=== PATIENT | female | born 1940 | race Caucasian/White ===

== ENCOUNTER 2022-08-07 16:11 | Observation (INO) | payer MEDICARE, SELFPAY ==
--- NOTE | 2022-08-07 16:29 | PC.NURSE ---
PT ARRIVED TO FLOOR BY STRETCHER AT 1625.
[2022-08-07 16:30] VITALS: BP 125/77; PULSE 96; RESP 18; TEMP 36.8; O2SAT 96
[2022-08-07 17:48] VITALS: BMI 31.1
[2022-08-07 17:52] LABS: Coronavirus 19, PCR Not Detected (NotDetected); Influenza A, PCR Not Detected (NotDetected); Influenza B, PCR Not Detected (NotDetected)
--- NOTE | 2022-08-07 18:50 | EXP.HP ---
History of Present Illness *Admission Date: 08/07/22 *Reason for visit:: NSTEMI *History of present illness: 81-year-old female history hypertension hyperlipidemia diabetes cystectomy. States that around 3:30 in the morning she began having some chills and nonspecific symptoms, at this time she noted that her heart was racing per her watch. Was told roughly 125. Denies having any chest pain shortness of breath nausea vomiting diarrhea. Blood sugar was slightly elevated during this time. Went to the emergency department where heart rate was normal sinus rhythm. High-sensitivity troponin was mildly elevated at [facility]. Mildly anemic 11.9 hemoglobin, creatinine 1.2, sodium 133, lactate 2.2. BNP slightly elevated to 289. Asymptomatic urinary tract infection on UA. She was transferred to [facility] for evaluation of NSTEMI. Currently at this time she is completely asymptomatic and denies any chest pain shortness of breath. She has not had any palpitations or further racing heart rate. No concerns or complaints at this time. [facility] Disclaimer: The information contained in this section may have been updated after the patient was seen, as this information can be updated by other users. Medical History (Updated 08/07/22 @ 18:59 by Esthela Lancaster MD) Breast cancer Carpal tunnel syndrome on both sides Diabetes mellitus, type 2 Hyperlipidemia Hypertension Surgical History (Updated 08/07/22 @ 16:41 by Padmini Coffey RN) History of appendectomy History of cholecystectomy History of hysterectomy History of knee replacement Social History (Updated 08/07/22 @ 16:41 by Padmini Coffey RN) Smoking Status: Never smoker alcohol intake: never current occupational status: retired Travel in the last 8 weeks: None Review of Systems Constitutional Constitutional: Reports as per [facility] Meds Home Medications and Allergies Home Medications Medication Instructions Recorded Confirmed Type aspirin 81 mg capsule 81 mg PO HS Heart disease 08/07/22 08/07/22 History hydroxyurea 500 mg capsule 500 mg PO DAILY gout 08/07/22 08/07/22 History lisinopril 10 mg tablet 10 mg PO DAILY High blood pressure 08/07/22 08/07/22 History metformin 1,000 mg tablet 1,000 mg PO BID Diabetes 08/07/22 08/07/22 History metoprolol succinate 25 mg 25 mg PO DAILY High blood pressure 08/07/22 08/07/22 History tablet,extended release 24 hr pravastatin 20 mg tablet 20 mg PO HS Cholesterol 08/07/22 08/07/22 History New Prescriptions to Start Prescriptions: Allergies Allergy/AdvReac Type Severity Reaction Status Date / Time adhesive tape Allergy Severe Other Verified 08/07/22 16:51 Penicillins Allergy Severe Hives Verified 08/07/22 16:51 Exam Data for Last 24 hours Vital signs and Labs for Last 24 Hours: Temp Pulse Resp BP Pulse Ox 98.2 F 96 H 18 125/77 96 08/07/22 16:30 08/07/22 16:30 08/07/22 16:30 08/07/22 16:30 08/07/22 16:30 I & O for Last 24 hours: Intake & Output 08/04/22 08/05/22 08/06/22 08/07/22 23:59 23:59 23:59 23:59 Intake Total 240 / 240 Balance 240 / 240 Weight 67.642 kg Constitutional Constitutional: no acute distress *Routine HEENT Exam Head: Present normocephalic Eye: Present EOMI and PERRL ENT: Present mucous membranes moist *Routine Neck Exam Neck: Present supple; Absent lymphadenopathy *Routine Respiratory Exam Respiratory: Present CTA bilaterally *Routine Cardiovascular Exam Cardiovascular: Present RRR *Routine Abdominal Exam Abdominal: Present soft and normoactive bowel sounds; Absent tenderness *Routine Rectal Exam Rectal:: deferred *Routine Genitalia Exam Genitalia:: deferred *Routine Extremities Exam Extremities: Absent cyanosis, clubbing or edema *Routine Skin Exam Skin: Present warm; Absent rash *Routine Neurological Exam Neurological: Present alert and oriented X3 Assessment and Plan *Assessment and plan (1) NSTEMI (non-ST elevated myoc
--- NOTE | 2022-08-07 18:59 | XR_ITS ---
PROCEDURE INFORMATION: Exam: XR Chest Exam date and time: 08/07/2022 7:03 PM Age: 81 years old Clinical indication: Pain; Chest pressure; Additional info: Nstemi TECHNIQUE: Imaging protocol: Radiologic exam of the chest. Views: 1 view. COMPARISON: No relevant prior studies available. FINDINGS: Lungs: Hyperlucent changes are demonstrated. Increase in the lung volumes is demonstrated. Pleural spaces: Unremarkable. No pleural effusion. No pneumothorax. Heart/Mediastinum: Unremarkable. No cardiomegaly. Bones/joints: Unremarkable. IMPRESSION: 1. No evidence of acute cardiopulmonary disease. 2. Evidence of previous granulomatous disease.
[2022-08-07 20:00] VITALS: BP 136/91; PULSE 90; PULSE 95; RESP 17; TEMP 36.8; O2SAT 96
[2022-08-07 20:01] LABS: Lactic Acid 1.6 mmol/L (0.7-2.1)
[2022-08-07 20:23] LABS: Troponin I 0.21 ng/ml (0.00-0.034)
[2022-08-07 20:40] VITALS: PULSE 82
[2022-08-07 22:05] LABS: POC Glucose,Bedside 356 (70-110)
[2022-08-07 22:22] LABS: Chloride 100 mmol/L (98-107); Sodium 131 mmol/L (136-145)
[2022-08-07 22:25] LABS: Blood Urea Nitrogen 18 mg/dl (7-17); Calcium 8.7 mg/dl (8.4-10.2); Carbon Dioxide 22 mmol/L (22.0-30.0); Creatinine Clearance Estimated 46 mL/min (50-200); Estimated Glomerular Filt Rate 60 ml/min (>60); GFR (African American) 73 ML/MIN (>60); Glucose 236 mg/dl (74-100)
[2022-08-07 22:34] LABS: Basophils # 0.2 K/mm3 (0-0.2); Basophils % 1.8 % (0.1-2.0); Eosinophils # 0.1 K/mm3 (0.0-0.4); Hematocrit 33.9 % (37.0-47.0); Hemoglobin 11.3 g/dL (12.2-16.2); Lymphocytes % 10.9 % (10-50); Mean Corpuscular HGB Conc 33.4 g/dL (31.8-35.4); Mean Corpuscular Hemoglobin 33.9 pg (27.0-31.2); Mean Corpuscular Volume 101.7 fl (81-99); Mean Platelet Volume 8.3 fl (7.4-10.4); Monocytes # 0.3 K/mm3 (0.1-1.0); Monocytes % 3.2 % (1.7-9.3); Neutrophils # 7.6 K/mm3 (1.8-7.8); Neutrophils % 83.2 % (37.0-80.0); Platelet Count 375 K/mm3 (142-424); Red Blood Count 3.33 M/mm3 (4.20-5.40); Red Cell Distribution Width 13.8 % (11.5-17.5); White Blood Count 9.1 K/mm3 (4.8-10.8)
[2022-08-08] VITALS (9 sets, daily range): BP systolic 120–177; BP diastolic 57–76; PULSE 80–114; RESP 16–21; TEMP 36.7–39.9; O2SAT 93–97; BMI 31.3
--- NOTE | 2022-08-08 05:54 | PC.NURSE ---
pt a&o x4. room air. normal sinus on tele. denies any chest pain through the night. echo today.
[2022-08-08 06:21] LABS: POC Glucose,Bedside 127 (70-110)
[2022-08-08 07:52] LABS: Basophils % 0.4 % (0.1-2.0); Eosinophils # 0.1 K/mm3 (0.0-0.4); Hematocrit 35.9 % (37.0-47.0); Hemoglobin 11.7 g/dL (12.2-16.2); Lymphocytes # 1.2 K/mm3 (0.7-4.5); Lymphocytes % 14.4 % (10-50); Mean Corpuscular HGB Conc 32.5 g/dL (31.8-35.4); Mean Corpuscular Hemoglobin 32.8 pg (27.0-31.2); Mean Corpuscular Volume 100.8 fl (81-99); Mean Platelet Volume 8.2 fl (7.4-10.4); Monocytes # 0.3 K/mm3 (0.1-1.0); Monocytes % 4.1 % (1.7-9.3); Neutrophils # 6.5 K/mm3 (1.8-7.8); Neutrophils % 80.1 % (37.0-80.0); Platelet Count 363 K/mm3 (142-424); Red Blood Count 3.56 M/mm3 (4.20-5.40); Red Cell Distribution Width 13.8 % (11.5-17.5); White Blood Count 8.1 K/mm3 (4.8-10.8)
[2022-08-08 08:02] LABS: Alanine Aminotransferase 15 U/L (12-78); Albumin Level 3.5 g/dl (3.5-5.0); Albumin/Globulin Ratio 1.4 (1.1-1.8); Alkaline Phosphatase 64 U/L (38-126); Anion Gap 9.1 mEq/L (5-15); Aspartate Amino Transferase 24 U/L (14-36); Bilirubin,Total 0.8 mg/dl (0.2-1.3); Blood Urea Nitrogen 17 mg/dl (7-17); Calcium 8.3 mg/dl (8.4-10.2); Carbon Dioxide 28 mmol/L (22.0-30.0); Chloride 97 mmol/L (98-107); Chol/HDL Ratio 2.3 (1-3.5); Cholesterol 119 mg/dl (140-200); Creatinine Clearance Estimated 46 mL/min (50-200); Estimated Glomerular Filt Rate 69 ml/min (>60); GFR (African American) 83 ML/MIN (>60); Globulin 2.5 g/dL (1.3-3.2); Glucose 202 mg/dl (74-100); HDL Cholesterol 51 mg/dl (40-60); Magnesium 1.2 mg/dl (1.6-2.3); Phosphorous 3.6 mg/dl (2.5-4.5); Potassium 4.1 mmoL/L (3.5-5.1); Sodium 130 mmol/L (136-145); Triglycerides 85 mg/dl (30-150); VLDL Cholesterol 17 mg/dL (0-40)
[2022-08-08 08:12] LABS: Direct LDL Cholesterol 44.74 mg/dL (100-129)
--- NOTE | 2022-08-08 09:18 | EXP.ACUTE.PN ---
Subjective *Date: 08/08/22 *Time: 09:18 Interval history: Hyperglycemic overnight. Feels better today. No chest pain, or any other concerning symptom Medical Exam Vital signs and Labs for Last 24 Hours: Vital Signs Temp Pulse Pulse Resp BP Pulse Ox 08/08/22 08:00 98.9 F 101 H 18 138/57 L 95 08/08/22 04:00 80 08/08/22 04:00 98.3 F 87 16 122/61 97 08/08/22 00:00 90 08/08/22 00:00 98.0 F 92 H 16 120/57 L 93 L 08/07/22 20:00 90 08/07/22 20:40 82 08/07/22 20:00 98.2 F 95 H 17 136/91 H 96 08/07/22 16:30 98.2 F 96 H 18 125/77 96 Intake and Output 08/07/22 08/08/22 08/08/22 23:59 07:59 15:59 Intake Total 240 / 390 150 / 390 240 / 390 Output Total 0 / 0 0 / 0 Balance 240 / 390 150 / 390 240 / 390 Intake: Intake, Oral Amount 240 / 390 150 / 390 240 / 390 Output: Output, Urine Amount 0 / 0 0 / 0 Other: Number of Voids 0 Number of Unmeasured Voids 1 1 Weight 67.642 kg 67.727 kg Patient Weight 08/08/22 23:59 Weight 67.727 kg Laboratory Results - last 24 hr 08/07/22 19:45: Troponin I 0.21 H 08/07/22 19:45: Lactate 1.6 08/07/22 19:45: Sodium 131 L, Potassium 4.0, Chloride 100, Carbon Dioxide 22, Anion Gap 13.0, BUN 18 H, Creatinine 0.90, Estimated Creat Clear 46, Estimated GFR 60, Est GFR ( Amer) 73, Glucose 236 H, Calcium 8.7 08/07/22 21:57: POC Glucose 356 H* 08/07/22 22:25: WBC 9.1, RBC 3.33 L, Hgb 11.3 L, Hct 33.9 L, MCV 101.7 H, MCH 33.9 H, MCHC 33.4, RDW 13.8, Plt Count 375, MPV 8.3, Neut % (Auto) 83.2 H, Lymph % (Auto) 10.9, [place] % (Auto) 3.2, Eos % (Auto) 1.0, Baso % (Auto) 1.8, Neut # (Auto) 7.6, Lymph # (Auto) 1.0, [place] # (Auto) 0.3, Eos # (Auto) 0.1, Baso # (Auto) 0.2 08/07/22 23:35: SARS-CoV-2 (PCR) Not detected, Influenza A Untype (PCR) Not detected, Influenza Type B (PCR) Not detected 08/08/22 06:12: POC Glucose 127 H 08/08/22 07:44: WBC 8.1, RBC 3.56 L, Hgb 11.7 L, Hct 35.9 L, MCV 100.8 H, MCH 32.8 H, MCHC 32.5, RDW 13.8, Plt Count 363, MPV 8.2, Neut % (Auto) 80.1 H, Lymph % (Auto) 14.4, [place] % (Auto) 4.1, Eos % (Auto) 1.0, Baso % (Auto) 0.4, Neut # (Auto) 6.5, Lymph # (Auto) 1.2, [place] # (Auto) 0.3, Eos # (Auto) 0.1, Baso # (Auto) 0.0 08/08/22 07:44: Sodium 130 L, Potassium 4.1, Chloride 97 L, Carbon Dioxide 28, Anion Gap 9.1, BUN 17, Creatinine 0.80, Estimated Creat Clear 46, Estimated GFR 69, Est GFR ( Amer) 83, Glucose 202 H, Calcium 8.3 L, Phosphorus 3.6, Magnesium 1.2 L, Total Bilirubin 0.8, AST 24, ALT 15, Alkaline Phosphatase 64, Total Protein 6.0 L, Albumin 3.5, Globulin 2.5, Albumin/Globulin Ratio 1.4, Triglycerides 85, Cholesterol 119 L, LDL Cholesterol Direct 44.74 L, VLDL Cholesterol 17, HDL Cholesterol 51, Cholesterol/HDL Ratio 2.3 I & O for Labs for Last 24 Hours: Intake & Output 08/05/22 08/06/22 08/07/22 08/08/22 23:59 23:59 23:59 23:59 Intake Total 240 / 390 390 / 390 Output Total 0 / 0 Balance 240 / 390 390 / 390 Weight 67.642 kg 67.727 kg Constitutional: Present no acute distress Respiratory: Present normal respiratory effort Cardiac: Present Reg Rate and Rhythm GI: Present normal bowel sounds; Absent tenderness Extremities: Present normal inspection and full ROM Skin: Present intact; Absent erythema Neuro: Present Grossly Intact and moves all extremities Assessment and Plan *Assessment and plan (1) NSTEMI (non-ST elevated myocardial infarction): Status: Acute Category: Medical Code(s): I21.4 - Non-ST elevation (NSTEMI) myocardial infarction (2) DAVID (acute kidney injury): Status: Acute Category: Medical Code(s): N17.9 - Acute kidney failure, unspecified (3) Hypertension: Status: Acute Category: Medical Code(s): I10 - Essential (primary) hypertension (4) Hyperlipidemia: Status: Acute Category: Medical Code(s): E78.5 - Hyperlipidemia, unspecified (5) Hypomagnesemia: Status: Acute C
--- NOTE | 2022-08-08 09:24 | CT_ITS ---
PROCEDURE INFORMATION: Exam: CT Chest Without Contrast; Diagnostic Exam date and time: 08/08/2022 11:26 AM Age: 81 years old Clinical indication: Other: Nodules; Additional info: Pulm nodules TECHNIQUE: Imaging protocol: Diagnostic computed tomography of the chest without contrast. Radiation optimization: All CT scans at this facility use at least one of these dose optimization techniques: automated exposure control; mA and/or kV adjustment per patient size (includes targeted exams where dose is matched to clinical indication); or iterative reconstruction. REPORTING DATA: Count of CT and Cardiac NM exams in prior 12 months: This patient has received 0 known CTs and 0 known cardiac nuclear medicine studies in the 12 months prior to the current study. COMPARISON: CR XR CHEST PORTABLE 08/07/2022 7:03 PM FINDINGS: Lungs: Scattered granulomatous calcifications within the mediastinum. No significant mediastinal lymphadenopathy. The minor atelectatic changes lower lung zones. Small cluster small pulmonary nodules right mid lung zone largest which measures 3 mm. Similar size subpleural nodule left midlung zone. Chronic granulomatous calcifications within the spleen. Pleural spaces: Unremarkable. No pneumothorax. No pleural effusion. Heart: Heart is not enlarged. Diffuse calcification of the mitral annulus. Extensive calcification of coronary arteries. No significant pericardial effusion. Lymph nodes: See Lungs finding. Vasculature: Unremarkable. No aortic aneurysm. Diaphragm: Small hiatal hernia Bones/joints: Diffuse smooth flowing syndesmophytes across the thoracic spine consistent with ankylosing spondylitis. Chronic compression fracture L2 treated with vertebroplasty. Soft tissues: Unremarkable. IMPRESSION: 1. Chronic granulomatous calcifications within the mediastinum and spleen. 2. Small hiatal hernia. 3. Bony changes of the thoracic spine disease with ankylosing spondylitis. 4. Extensive calcification of coronary arteries. 5. Few small pulmonary nodules measuring up to 3 mm. Follow-up as clinically indicated. For patients at low risk (minimal or absent history of smoking and of other known risk factors), no routine follow-up is indicated. For patients at high risk (history of smoking or of other known risk factors), consider optional CT Chest at 12 months. (Reference: Bossman) References: Bossman Cooper et al. Guidelines for Management of Incidental Pulmonary Nodules Detected on CT Images: From the Fleischner Society 2017. Radiology. 2017;284(1):228-243.
[2022-08-08 12:20] LABS: POC Glucose,Bedside 153 (70-110)
--- NOTE | 2022-08-08 16:14 | PC.NURSE ---
dr cole tracy made aware that patient rectal temperature was 103. 650 mg po tylenol given and ice packs placed to axillary region. v/o for blood cultures and urine culture.
[2022-08-08 18:23] LABS: POC Glucose,Bedside 203 (70-110)
[2022-08-08 20:27] LABS: POC Glucose,Bedside 87 (70-110)
[2022-08-08 23:37] LABS: Lactic Acid 0.6 mmol/L (0.7-2.1)
--- NOTE | 2022-08-08 23:39 | PC.NURSE ---
COURTESY ROUND PATIENT AWAKE SITTING UP IN BED. PATIENT VOICED NO NEEDS AT THIS TIME. TRASH AND LINENS EMPTIED . WATER PITCHER REFILLED . CALL LIGHT WITHIN REACH .
[2022-08-09] VITALS: BP 129/59; PULSE 70; PULSE 79; RESP 18; TEMP 36.7; O2SAT 98
[2022-08-09 04:00] VITALS: BP 155/81; PULSE 80; PULSE 85; RESP 18; TEMP 37.4; O2SAT 98; BMI 31.5
[2022-08-09 04:28] LABS: Microscopic, Urine URINE MICROSCOPIC (MICROSCOPIC)
[2022-08-09 04:31] LABS: Appearance,Urine CLEAR (Clear); Bilirubin,Urine Negative (Negative); Blood, Urine TRACE-I (Negative); Color,Urine YELLOW (Yellow); Glucose,Urine (UA) Negative (Negative); Ketones,Urine TRACE (Negative); Leukocyte Esterase,Urine 2+ (Negative); Nitrate,Urine POSITIVE (Negative); Protein,Urine Negative (Negative); Specific Gravity, Urine <= 1.005 (1.005-1.030); Urobilinogen,Urine 0.2 EU/dl (0.2)
[2022-08-09 04:39] LABS: Bacteria,Urine 3+ /lpf; RBC,Urine Occasional #/hpf (0-3); Squamous Epithelial Cell,Urine Occasional #/hpf (0-5); WBC,Urine 20-50 #/hpf (0-3)
[2022-08-09 04:57] LABS: POC Glucose,Bedside 143 (70-110)
--- NOTE | 2022-08-09 06:00 | CA_ITS ---
APPROVED REPORT EXAM: Comprehensive 2D, Doppler, and color-flow Echocardiogram Harness Installer: Mariaelena Kim, RCS, RVS Ht: 4 ft 9 in Wt: 150lbs BSA: 1.59 BP: 125/77 mmHg Indications: NSTEMI ?, Breast CA, Anemia-Hgb=11.9, HTN, HLD, DM Echo Enhancing Agent Comments: Technically limited, Poor windows throughout. 2D Dimensions IVSd 0.77 cm F: 0.6-1.0 LVEF (Visual) 80.20 % PWd 0.96 cm F: 0.6 - 1.0 LA Volume 45.80 mL LVDd 3.55 cm F: 3.9 - 5.3 LA Volume Index 28.030208 mL/m2 (M/F) 16-34 LVDs 1.85 cm F: 2.2 - 3.5 Aortic Root 2.67 cm F: 2.7 - 3.3 Left Atrium 3.03 cm F: 2.7 - 3.8 M-Mode Dimensions TAPSE 1.75 (<1.7) LV Diastology E Decel Time 117.00 (160-240 msec) E/A Ratio 0.52 MED E' 6.80 (< 7 cm/sec) MED A' 12.90 cm/s E'/MED E' Ratio 10.04 (>14) LAT E' 7.00 (<10 cm/sec) LAT A' 11.30 cm/s E/LAT E' Ratio 9.76 (>14) Aortic Valve AO Peak GR. 8.60 mmHg Mitral Valve MV A Velocity 131.00 (40-130 cm/s) E/A Ratio 0.52 MV Decel. Time 117.00 (160-240 ms) Tricuspid Valve TR P. Velocity 210.00 cm/s RAP Estimate 10.00 mmHg RVSP 27.70 mmHg Left Ventricle Technically difficult and limited study. Mildly dilated, normal left ventricle size mild concentric left ventricular hypertrophy, hyperdynamic left ventricular systolic function, estimated ejection fraction over 65% with no regional wall motion abnormality in the obtained views. Grade 1 diastolic dysfunction seen without tissue Doppler evidence of raise left atrial pressure. Right Ventricle Right atrium and right ventricular normal size and contractility. Aortic Valve Aortic valve is not well visualized, Doppler is not indicated for aortic stenosis aortic insufficiency. Mitral Valve Mitral valve has mitral valve calcification, there is no mitral stenosis, there is trace mitral regurgitation. Tricuspid Valve Tricuspid valve grossly normal, there is trace tricuspid regurgitation, tricuspid regurgitation jet velocity is inadequate for calculation of the right ventricular systolic pressure. Pulmonic Valve Pulmonic valve is poorly visualized. Great Vessels Aortic root is normal size. Inferior vena cava is poorly visualized. Pericardium No significant pericardial effusion noted. Conclusion 1. Technically difficult and limited study. Normal left ventricular size, hyperdynamic left ventricular systolic function, estimated ejection fraction was 65% with no regional wall motion abnormality in the obtained views. Grade 1 diastolic dysfunction seen without tissue Doppler evidence of raise left atrial pressure. 2. Trace mitral and tricuspid regurgitation. 3. No significant pericardial effusion noted. 4. Inferior vena cava is poorly visualized. Electronically signed by : Elpidio Mckoy MD 08/10/2022 05:53:59
[2022-08-09 07:29] LABS: Basophils % 0.4 % (0.1-2.0); Eosinophils # 0.1 K/mm3 (0.0-0.4); Eosinophils % 1.2 % (0.1-12.0); Hematocrit 33.5 % (37.0-47.0); Hemoglobin 11.3 g/dL (12.2-16.2); Lymphocytes # 0.6 K/mm3 (0.7-4.5); Lymphocytes % 10.9 % (10-50); Mean Corpuscular HGB Conc 33.8 g/dL (31.8-35.4); Mean Corpuscular Hemoglobin 33.6 pg (27.0-31.2); Mean Corpuscular Volume 99.3 fl (81-99); Mean Platelet Volume 8.3 fl (7.4-10.4); Monocytes # 0.2 K/mm3 (0.1-1.0); Monocytes % 3.8 % (1.7-9.3); Neutrophils # 4.9 K/mm3 (1.8-7.8); Neutrophils % 83.7 % (37.0-80.0); Platelet Count 310 K/mm3 (142-424); Red Blood Count 3.37 M/mm3 (4.20-5.40); Red Cell Distribution Width 13.6 % (11.5-17.5); White Blood Count 5.8 K/mm3 (4.8-10.8)
[2022-08-09 07:33] LABS: Alanine Aminotransferase 12 U/L (12-78); Albumin Level 3.4 g/dl (3.5-5.0); Albumin/Globulin Ratio 1.4 (1.1-1.8); Alkaline Phosphatase 69 U/L (38-126); Anion Gap 8.7 mEq/L (5-15); Aspartate Amino Transferase 22 U/L (14-36); Bilirubin,Total 0.7 mg/dl (0.2-1.3); Blood Urea Nitrogen 13 mg/dl (7-17); Calcium 8.2 mg/dl (8.4-10.2); Carbon Dioxide 29 mmol/L (22.0-30.0); Chloride 93 mmol/L (98-107); Creatinine Clearance Estimated 47 mL/min (50-200); Estimated Glomerular Filt Rate 80 ml/min (>60); GFR (African American) 97 ML/MIN (>60); Globulin 2.5 g/dL (1.3-3.2); Glucose 133 mg/dl (74-100); Magnesium 1.4 mg/dl (1.6-2.3); Phosphorous 3.5 mg/dl (2.5-4.5); Potassium 3.7 mmoL/L (3.5-5.1); Sodium 127 mmol/L (136-145); Total Protein,Serum 5.9 g/dl (6.3-8.2)
[2022-08-09 07:38] LABS: C-Reactive Protein 72.3 mg/L (0-4)
[2022-08-09 07:57] LABS: Procalcitonin 4.38 ng/mL (0.0-2.0)
[2022-08-09 08:00] VITALS: BP 142/61; PULSE 111; PULSE 112; RESP 21; TEMP 38.1; O2SAT 95
[2022-08-09 08:04] LABS: Erythrocyte Sedimentation Rate 78 mm/hr (0-30)
[2022-08-09 09:22] VITALS: BMI 31.4
--- NOTE | 2022-08-09 09:41 | EXP.CARD.CON ---
History of Present Illness History of Present Illness Consult date: 08/09/22 Requesting physician: Esthela Lancaster Chief complaint: Tachycardia History of present illness: 81 year old white female with past medical hx of fast heart rate, HTN, HLD and thrombocythemia presented to ER at [facility] with complaint of a fast heart rate. Patient reports she awoke at roughly 3 AM with diaphoresis and palpitations. She had a smart watch on which showed that she was tachy in the 120s. She denies chest pain, shortness of breath or nausea vomiting. Patient reports she went to ER because daughter made her. Upon presentation to [facility] emergency department she was noted to be in sinus rhythm. A high-sensitivity troponin was mildly elevated, hemoglobin 11.9, creatinine 1.2, sodium 133, lactate 2.2, BNP 289. Patient was transferred to [facility] for further evaluation of NSTEMI. Patient continues to deny any symptoms of chest pain or shortness of breath. Reports good functional capacity at baseline with no hx of anginal equivalant symptoms upon exertion. Patient sees Dr. Jackson for tachycardia and is treated with a beta-boo at home. Upon transfer to [facility] patient became febrile with temp reaching 103.8. Urine positive for 2+ leukocyte esterase, 3+ bacteria. [facility] Disclaimer: The information contained in this section may have been updated after the patient was seen, as this information can be updated by other users. Medical History (Updated 08/09/22 @ 09:52 by Desiree Jauregui APRN) Breast cancer Carpal tunnel syndrome on both sides Diabetes mellitus, type 2 Hyperlipidemia Hypertension Surgical History (Updated 08/07/22 @ 16:41 by Padmini Coffey RN) History of appendectomy History of cholecystectomy History of hysterectomy History of knee replacement Social History (Updated 08/07/22 @ 18:59 by Esthela Lancaster MD) Smoking Status: Never smoker alcohol intake: never current occupational status: retired Travel in the last 8 weeks: None Review of Systems Review of Systems Review of systems:: pertinent systems reviewed and negative unless documented below Exam Data for Last 24 hours Vital signs and Labs for Last 24 Hours: Temp Pulse Resp BP Pulse Ox 100.6 F H 111 H 21 142/61 H 95 08/09/22 08:00 08/09/22 08:00 08/09/22 08:00 08/09/22 08:00 08/09/22 08:00 Laboratory Results - last 24 hr 08/08/22 04:14: Urine Color Yellow, Urine Appearance Clear, Urine pH 6.0, Ur Specific [place] <= 1.005, Urine Protein Negative, Urine Glucose (UA) Negative, Urine Ketones Trace, Urine Blood Trace-i, Urine Nitrate Positive, Urine Bilirubin Negative, Urine Urobilinogen 0.2, Ur Leukocyte Esterase 2+ A, Urine RBC Occasional, Urine WBC 20-50, Ur Squamous Epith Cells Occasional, Urine Bacteria 3+ 08/08/22 12:01: POC Glucose 153 H 08/08/22 16:24: POC Glucose 203 H 08/08/22 20:20: POC Glucose 87 08/08/22 23:20: Lactate 0.6 L 08/09/22 04:50: POC Glucose 143 H 08/09/22 06:33: WBC 5.8 D, RBC 3.37 L, Hgb 11.3 L, Hct 33.5 L, MCV 99.3 H, MCH 33.6 H, MCHC 33.8, RDW 13.6, Plt Count 310, MPV 8.3, Neut % (Auto) 83.7 H, Lymph % (Auto) 10.9, [place] % (Auto) 3.8, Eos % (Auto) 1.2, Baso % (Auto) 0.4, Neut # (Auto) 4.9, Lymph # (Auto) 0.6 L, [place] # (Auto) 0.2, Eos # (Auto) 0.1, Baso # (Auto) 0.0 08/09/22 06:33: Sodium 127 L, Potassium 3.7, Chloride 93 L, Carbon Dioxide 29, Anion Gap 8.7, BUN 13, Creatinine 0.70, Estimated Creat Clear 47, Estimated GFR 80, Est GFR ( Amer) 97, Glucose 133 H D, Calcium 8.2 L, Phosphorus 3.5, Magnesium 1.4 L D, Total Bilirubin 0.7, AST 22, ALT 12, Alkaline Phosphatase 69, C-Reactive Protein 72.3 H, Total Protein 5.9 L, Albumin 3.4 L, Globulin 2.5, Albumin/Globulin Ratio 1.4 08/09/22 06:33: Procalcitonin 4.38 H 08/09/22 06:33: ESR 78 H I & O for Last 24 hours: Intake & Output 08/06/22 08/07/22 08/08/22 08/09/22 23:59 23:59 23:59 23:59 Intake Total 240 / 390 990 / 990
[2022-08-09 10:49] LABS: POC Glucose,Bedside 239 (70-110)
--- NOTE | 2022-08-09 11:18 | PC.NURSE ---
PT DID REPORT HEADACHE THIS MORNING, ALONG WITH TEMP OF 100.6. TX WITH TYLENOL PER JUL, EFFECTIVENESS NOTED.
--- NOTE | 2022-08-09 11:23 | PC.NURSE ---
PT IS REFUSING FLUIDS AT THIS TIME, STATES LET'S WAIT UNTIL THE DOCTOR COMES AROUND.
[2022-08-09 11:40] VITALS: BP 143/69; PULSE 98; RESP 19; TEMP 37.6; O2SAT 97
[2022-08-09 12:00] VITALS: PULSE 86
--- NOTE | 2022-08-09 12:00 | EXP.DC.SUM ---
General Admission date:: 08/07/22 Discharge date: 08/09/22 HPI HPI HPI: 81-year-old female history hypertension, hyperlipidemia, diabetes, cystectomy. States that around 3:30 in the morning she began having some chills and nonspecific symptoms, at this time she noted that her heart was racing per her watch. Was told roughly 125. Denies having any chest pain shortness of breath nausea vomiting diarrhea. Blood sugar was slightly elevated during this time. Went to the emergency department where heart rate was normal sinus rhythm. High-sensitivity troponin was mildly elevated at [facility]. Mildly anemic 11.9 hemoglobin, creatinine 1.2, sodium 133, lactate 2.2. BNP slightly elevated to 289. Asymptomatic urinary tract infection on UA. She was transferred to [facility] for evaluation of NSTEMI. Currently at this time she is completely asymptomatic and denies any chest pain shortness of breath. She has not had any palpitations or further racing heart rate. No concerns or complaints at this time. Hospital Course Hospital Course Hospital Course: 81-year-old female with hypertension hyperlipidemia presenting as a transfer from outside hospital due to NSTEMI following episodes of racing heart rate awoke her.? Currently suspecting some degree of tachyarrhythmia that caused troponin elevation due to demand ischemia from heart rate.? Concerning for UTI. Also noted to have some electrolyte disturbances. Urine came back positive with greater than 100,000 CFU's. Started on antibiotics. Clinically improved. Heart rate stable with treatment for her underlying etiology (UTI). Patient stable for discharge home. Problems addressed as follows: UTI -Patient with minimal symptoms however significantly abnormal UA. Urine culture growing greater than 100,000 CFU's of E. coli. Started on ceftriaxone during admission. Transition to cefdinir to complete 7-day course of antibiotics for UTI. Likely etiology for her tachycardia and NSTEMI on presentation. NSTEMI -Concern for mild elevation in troponin and NSTEMI on presentation. This is the reason for transfer to our facility. Cardiology was consulted, no intervention planned at this time. Suspect demand ischemia secondary to acute illness and tachycardia. Preliminary echo obtained showing EF 55%. No regional wall motion abnormalities. Recommend increasing Toprol to 50 mg daily. Discharged with 2-week event monitor. Further management pending follow-up. Hypertension Hyperlipidemia - Continue home lisinopril and increased dose of metoprolol. Well-controlled during hospitalization. Continue pravastatin 20 mg daily for hyperlipidemia. Mild electrolyte disturbances during hospitalization with hypomagnesemia and hyponatremia. Asymptomatic. Repleted as needed during hospitalization. Present on admission. Resolved by day of discharge. Patient has a history of thrombocytopenia. Is followed by oncology. Currently on hydroxyurea. Continue. Stable for discharge home. Further management as an outpatient. Spent 40 minutes in discharge counseling and direct care with patient. Exam Data for Last 24 hours Vital signs and Labs for Last 24 Hours: Temp Pulse Resp BP Pulse Ox 99.7 F H 98 H 19 143/69 H 97 08/09/22 11:40 08/09/22 11:40 08/09/22 11:40 08/09/22 11:40 08/09/22 11:40 Laboratory Results - last 24 hr 08/08/22 04:14: Urine Color Yellow, Urine Appearance Clear, Urine pH 6.0, Ur Specific [place] <= 1.005, Urine Protein Negative, Urine Glucose (UA) Negative, Urine Ketones Trace, Urine Blood Trace-i, Urine Nitrate Positive, Urine Bilirubin Negative, Urine Urobilinogen 0.2, Ur Leukocyte Esterase 2+ A, Urine RBC Occasional, Urine WBC 20-50, Ur Squamous Epith Cells Occasional, Urine Bacteria 3+ 08/08/22 12:01: POC Glucose 153 H 08/08/22 16:24: POC Glucose 203 H 08/08/22 20:20: POC Glucose 87 08/08/22 23:20: Lactate 0.6 L 08/09/22 04:50: POC Glucose 143 H 08/09/22 06:33: WBC
--- NOTE | 2022-08-10 14:12 | CARE MANAGER ---
Patient returned phone call related to hospital discharge. Patient states she is feeling better. She is aware of her follow up appointments and picked up her prescriptions. SILVIA Grimaldo
== END 2022-08-09 12:36 | disposition home or self-care (01) ==
PROVIDERS: Nurse Practitioner Acute Care; Admitting Provider Student in an Organized Health Care Education/Training Program; PCP Emergency Medicine; Visit Provider Student in an Organized Health Care Education/Training Program
DX: I21.4 Non-ST elevation (NSTEMI) myocardial infarction (principal); N17.9 Acute kidney failure, unspecified; I10 Essential (primary) hypertension; E78.5 Hyperlipidemia, unspecified; E83.42 Hypomagnesemia; Z79.84 Long term (current) use of oral hypoglycemic drugs; Z79.899 Other long term (current) drug therapy; N39.0 Urinary tract infection, site not specified; Z20.822 Contact with and (suspected) exposure to COVID-19; E11.9 Type 2 diabetes mellitus without complications
CPT/HCPCS: G0378; G0379; 36415; 71045; 71250; 80048; 80053; 80061; 81001; 82962; 83605; 83735; 84100; 84145; 84484; 85025; 85651; 86140; 87040; 87086; 87088; 87186; 93225; 93226; 93306; C9803; J0696; J3475; U0003; U0005